=== PATIENT | male | born 1950 | race Caucasian/White ===

== ENCOUNTER 2020-06-07 08:21 | Day surgery (SDC) | payer OTHER, BC ==
[2020-06-03 10:54] VITALS: BMI 35.2
[2020-06-07] MEDS ORDERED: PROPOFOL 20 ML ONE ×3 (10:20)
[2020-06-07 10:39] VITALS: TEMP 98.6
[2020-06-07 10:41] VITALS: PULSE 62
[2020-06-07 10:48] VITALS: BP 116/76
== END 2020-06-07 11:05 | disposition home or self-care (01) ==
LOC: FASU-ENDO 08:21
PROVIDERS: ATTEND Internal Medicine Gastroenterology
PROC: 0DBL8ZX Excision of Transverse Colon, Via Natural or Artificial Opening Endoscopic, Diagnostic (ICD-10-PCS; principal; 2020-06-07 10:07)
DX: Z12.11 Encounter for screening for malignant neoplasm of colon (principal); D12.3 Benign neoplasm of transverse colon; Z80.0 Family history of malignant neoplasm of digestive organs
CPT/HCPCS: 88305-TC

== ENCOUNTER 2023-12-23 09:29 | Emergency (ER) | payer OTHER, BC ==
[2023-12-23 09:35] VITALS: RESP 18; BMI 37.3
[2023-12-23 10:33] LABS: EPITHELIAL CELLS 0-5 /hpf
[2023-12-23] MEDS ORDERED: LIDOCAINE HCL 2% JELLY 10 ML CARTRIDGE ONE (10:47)
[2023-12-23] MEDS: SULFAMETHOXAZOLE/TRIMETHOPRIM 800MG/160MG D.S. TABLET PO ONE (11:20)
[2023-12-23] MEDS ORDERED: SULFAMETHOXAZOLE/TRIMETHOPRIM 800MG/160MG D.S. TABLET ONE (11:20)
[2023-12-23] MEDS ORDERED: IBUPROFEN 400 MG TABLET (FP) PO ONE (13:28)
[2023-12-23] MEDS: SODIUM CHLORIDE 1,000 ML IV STA ×2 (13:49→16:34)
[2023-12-23] MEDS: IBUPROFEN 400 MG TABLET (FP) PO ONE (13:49)
[2023-12-23 14:34] LABS: HEMATOCRIT 40.5 % (35.4-49); HEMOGLOBIN 13.5 G/dL (11.7-16.9); MCH 30.2 pg (25.7-33.7); MCHC 33.4 g/dl (32.0-35.9); MEAN CELL VOLUME 90.4 fl (80-96); MEAN PLT VOLUME 9.2 fl (7.5-11.1); PLATELET COUNT 150.4 10^3/uL (134-434); RBC 4.48 10^6/uL (4.00-5.60); RDW 14.3 % (11.9-15.9); WHITE BLOOD COUNT 7.2 10^3/uL (4.0-10.8)
[2023-12-23 14:42] LABS: ALBUMIN 4.4 g/dl (3.4-5.0); CALCIUM 10.5 mg/dl (8.5-10.1); CREATININE 2.5 mg/dl (0.6-1.3); POTASSIUM 4.2 mmol/L (3.5-5.1); TOT PROT 7.3 g/dl (6.4-8.2)
[2023-12-23 14:43] LABS: BILIRUBIN,TOTAL 2.5 mg/dl (0.2-1)
[2023-12-23] MEDS ORDERED: ACETAMINOPHEN INJECTION 100 ML ONE (14:46)
[2023-12-23] MEDS: ACETAMINOPHEN 1000 MG/100 ML BAG IVPB ONE (14:50)
[2023-12-23 14:56] LABS: PLATELET ESTIMATE ADEQUATE
[2023-12-23 15:55] LABS: LACTIC ACID 7.6 mmol/L (0.4-2.0)
[2023-12-23] MEDS ORDERED: SODIUM CHLORIDE 1,000 ML IV STA (16:20)
[2023-12-23 17:20] VITALS: BP 128/67; PULSE 85; TEMP 98.9
[2023-12-23 19:34] LABS: LACTIC ACID 7.1 mmol/L (0.4-2.0)
== END 2023-12-23 18:20 | disposition left against medical advice (07) ==
LOC: FER 09:29
PROC: 3E033NZ Introduction of Analgesics, Hypnotics, Sedatives into Peripheral Vein, Percutaneous Approach (ICD-10-PCS; principal; 2023-12-23)
PROC: 3E0337Z Introduction of Electrolytic and Water Balance Substance into Peripheral Vein, Percutaneous Approach (ICD-10-PCS; 2023-12-23)
PROC: 3E0337Z Introduction of Electrolytic and Water Balance Substance into Peripheral Vein, Percutaneous Approach (ICD-10-PCS; 2023-12-23)
DX: N12 Tubulo-interstitial nephritis, not specified as acute or chronic (principal); N13.30 Unspecified hydronephrosis; N17.9 Acute kidney failure, unspecified; R30.0 Dysuria; R35.0 Frequency of micturition; R50.9 Fever, unspecified
CPT/HCPCS: 36415; 71045-TC-FY; 76775-TC; 76856-TC; 80053; 81003; 81015; 83605; 85027; 87040; 87086; 87186; 99285-25; J0131